=== PATIENT | male | born 1975 | race Caucasian/White ===

== ENCOUNTER 2022-06-02 20:22 | Emergency (ER) | payer SELFPAY ==
[~2022-06-02] VITALS: Ht 188 cm; Wt 91.0 kg
[2022-06-02] MEDS: ACETAMINOPHEN WITH CODEINE 300/30MG TABLET PO ONE (23:11)
[2022-06-03 01:48] VITALS: BP 138/87
[2022-06-03] MEDS: MORPHINE SULFATE 4 MG/ML CPJ (NOT FOR IM USE) IV ONE (01:48)
[2022-06-03] MEDS: ONDANSETRON HCL 4MG/2ML INJ IV ONE (01:48)
[2022-06-03] MEDS ORDERED: IBUP-2029 MT (02:50)
[2022-06-03] MEDS ORDERED: HYDR-4001 MT (02:50)
== END 2022-06-03 03:51 | disposition home or self-care (01) ==
LOC: ER 20:22
DX: S82.891A Other fracture of right lower leg, initial encounter for closed fracture (principal); X58.XXXA Exposure to other specified factors, initial encounter; Y93.89 Activity, other specified; Y92.89 Other specified places as the place of occurrence of the external cause; Y99.8 Other external cause status
CPT/HCPCS: 73590; 73610; 73630; 96374; 96375; 99284; J2270; J2405